=== PATIENT | female | born 1955 | race Caucasian/White ===

== ENCOUNTER 2017-05-21 09:35 | Observation (INO) ==
--- NOTE | 2017-05-21 10:18 | XRay Report ---
HISTORY: Reason for Exam:Cough/weakness FINDINGS: The lungs are hyperinflated. There is an ill-defined opacity located laterally in the right upper lobe. It measures approximately 3 x 4.1 cm. This has not changed since 01/07/17 at [facility]. No new mass or infiltrate have developed. There is no congestive heart failure or pleural effusion. The heart size is normal. IMPRESSION: COPD Stable vague masslike infiltrate in the right upper lobe Interpreted and Authenticated by: Henri Muñiz 05/21/17
[2017-05-21 10:57] LABS: Basophils # (Auto) 0 K/mcL (0.0-0.3); Basophils % (Auto) 0.3 % (0.0-2.0); Eosinophils # (Auto) 0.4 K/mcL (0.0-0.7); Eosinophils % (Auto) 3.6 % (0.0-7.0); Granulocytes % (Auto) 77.5 % (38.0-78.0); Lymphocytes # (Auto) 1.3 K/mcL (1.5-4.8); Lymphocytes % (Auto) 12.4 % (15.5-49.0); Mean Corpuscular HGB Conc 32.6 g/dL (31.0-36.0); Monocytes # (Auto) 0.7 K/mcL (0.1-0.9); Monocytes % (Auto) 6.2 % (1.0-12.0); Platelet Count 378 K/mcL (140-440); Red Cell Distribution Width 13.6 % (11.5-14.5)
[2017-05-21 11:21] LABS: ALT/SGPT 7 U/l (0-40); Albumin 3.2 gm/dL (3.2-5.2); Albumin/Globulin Ratio 1.1 (1.0-2.3); Alkaline Phosphatase 75 U/L (39-117); Blood Urea Nitrogen 9 mg/dl (8-23)
[2017-05-21 11:22] LABS: Appearance,Urine HAZY; Bilirubin,Urine NEG (NEG); Color,Urine YELLOW; Glucose,Urine (UA) NEGATIVE (NEG); Leukocyte Esterase,Urine NEG /uL (NEG); Protein,Urine NEG (NEG); Specific Gravity,Urine 1.017 (1.000-1.035); Urine Blood NEG mg/dL (<0.03)
--- NOTE | 2017-05-21 12:16 | Emergency Department Note ---
Weakness HPI - General Chief complaint: Weakness Stated complaint: SOB/weakness Time Seen by Provider: 05/21/17 10:22 Source: EMS Mode of arrival: EMS Limitations: no limitations - History of Present Illness HPI Narrative: This 62-year-old homebound patient is brought in by EMS after called because of her struggling to breathe and coughing which occurred while she was at the table today but not related to any swallowing of food. She has been coughing some for a couple of weeks and low-grade for about a year. Today she could not even talk and was nearly passing out she was laboring so hard. Yesterday she had some difficulty swallowing when she seemed to get too much of some chopped bananas in her mouth and he thinks it was mainly because of the volume. She ate well for supper. 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 She has gradually become weaker and lost weight with believing that she has lost approximately 25 pounds since February 15 when she was 89. She mostly eats well but sometimes finds it hard to bite down with her dentures. REVIEW OF SYSTEMS: General: No fevers or chills. She has had some sweats at night in the past 5 days. 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 ENT: She has been digging at her left ear and it is caused a dugout scab area which has been has tried to cover with a Band-Aid. CV: No chest pain. Pulmonary: No shortness of breath or wheezing. GI: She has complained of some lower abdominal discomforts and pain. No nausea or vomiting. No diarrhea. She has had lots of constipation. It is not been associated with hematochezia. Neuro: Has describes some new headaches in the past 3 weeks that are on the left side of her head from the ear backwards. - Related Data Allergies Allergy/AdvReac Type Severity Reaction Status Date / Time meperidine [From Demerol] Allergy Unknown Unknown Verified 05/21/17 10:00 Past Medical History - Past Medical History Medical history: Reports: CVA (Reportedly 5 in the last 1 year.), hypertension ( In the past.), other (Right lung mass, electively choosing not to do anything about it.). Denies: myocardial infarction - Social History smoking status: Current every day smoker Alcohol use: Reports: None Physical Exam Limitations: no limitations General appearance: cachectic, in no apparent distress, lethargic, other (Very soft quiet voice with few words making it hard to get much history from her although she seems to be able to understand most questions and respond.) Head: atraumatic, normocephalic Eye: Present: EOMI ENT: mucous membranes dry Neck: Present: trachea midline. Absent: lymphadenopathy, thyromegaly Respiratory: Present: normal lung sounds bilaterally, other (Occasional phlegmy cough.). Absent: respiratory distress, wheezes, stridor, accessory muscle use, prolonged expiratory phase Cardiovascular: Present: regular rate, normal rhythm. Absent: systolic murmur, diastolic murmur Abdominal: Present: soft. Absent: distention, tenderness, guarding, rebound, rigidity, organomegaly, mass Extremities: Absent: pedal edema, pretibial edema Neurological: Present: alert (But intermittently sleeping.), other (Left arm posed in a flexed and hand flexed position across her arm without movement or control. Left leg without movement or control.) Psychiatric: Present: flat affect Skin: Present: warm, dry Course Course Narrative: Labs and chest x-ray ordered. Oxygens occasionally going to the 83-85% range. Chest x-ray confirms the mass. Labs fairly unremarkable. Case discussed with Dr. Ding. Will obtain a medical social worker consultation regarding this patient circumstance, need for future skilled care because of and ability to continue to care for her, consideration for hospice, enrollment in Medicare, etc. 3:00 PM Labs fairly unremarkable. Chest x-ray demonstrates the persistence of the mass. She has witnessed episodes of hypoxia going down under 90% even with supplemental oxygen in 2-4 L. At times was short of breath. Patient may have some underlying cardiovascular or pulmonary versus central nervous system effect on her respiratory drive. It is unknown if she has metastatic disease from the probable cancer in her lungs. She will be admitted to observation for consideration of future placement and maximizing her treatment. I spoke with hospitalist, Dr Korey Ding, who kindly accepted taking over care. Vital Signs Temperature 97.8 F 05/21/17 09:36 Pulse Rate 84 05/21/17 09:36 Respiratory Rate 16 05/21/17 09:36 Blood Pressure 133/56 02/02/18 09:36 Pulse Oximetry (%) 100 05/21/17 09:36 Temperature 97.8 F 05/21/17 09:36 Pulse Rate 94 H 05/21/17 14:06 Respiratory Rate 20 05/21/17 13:46 Blood Pressure 117/58 05/21/17 14:01 Pulse Oximetry (%) 93 05/21/17 14:06 Weakness - Lab Data Result diagrams: 05/21/17 10:01 05/21/17 10:01 Lab Results 05/21/17 05/21/17 05/21/17 Range/Units 10:01 10:01 10:50 WBC 10.6 (4.5-11.0) K/mcL RBC 4.70 (4.00-5.20) M/mcL Hgb 14.1 (12.0-15.0) g/dL Hct 43.3 (36.0-48.0) % MCV 92.0 (80.0-100.0) fL MCH 30.0 (26.0-34.0) pg MCHC 32.6 (31.0-36.0) g/dL RDW 13.6 (11.5-14.5) % Plt Count 378 (140-440) K/mcL MPV 9.0 (7.4-10.4) fL Gran % 77.5 (38.0-78.0) % Lymph % (Auto) 12.4 L (15.5-49.0) % [place] % (Auto) 6.2 (1.0-12.0) % Eos % (Auto) 3.6 (0.0-7.0) % Baso % (Auto) 0.3 (0.0-2.0) % Gran # 8.3 H (1.8-8.0) K/mcL Lymph # (Auto) 1.3 L (1.5-4.8) K/mcL [place] # (Auto) 0.7 (0.1-0.9) K/mcL Eos # (Auto) 0.4 (0.0-0.7) K/mcL Baso # (Auto) 0 (0.0-0.3) K/mcL Sodium 146 H (133-145) mmol/L Potassium 3.6 (3.3-5.1) mmol/L Chloride 108 (96-108) mmol/L Carbon Dioxide 29 (22-30) mmol/L Anion Gap 9.0 (8-16) BUN 9 (8-23) mg/dl Creatinine 0.4 L (0.6-1.1) mg/dl GFR Calculation 110 Glucose 94 (70-105) mg/dL Calcium 9.2 (8.6-10.4) mg/dl Total Bilirubin 0.3 (0.0-1.0) mg/dL AST 9 (0-37) U/l ALT 7 (0-40) U/l Alkaline Phosphatase 75 (39-117) U/L Total Protein 6.0 (5.9-8.4) gm/dL Albumin 3.2 (3.2-5.2) gm/dL Globulin 2.8 (2.2-3.7) gm/dL Albumin/Globulin Ratio 1.1 (1.0-2.3) Urine Color Yellow Urine Appearance Hazy Urine pH 7.0 (5.0-9.0) Ur Specific [place] 1.017 (1.000-1.035) Urine Protein Neg (NEG) mg/dL Urine Glucose (UA) Negative (NEG) mg/dL Urine Ketones Neg (NEG) mg/dL Urine Occult Blood Neg (<0.03) mg/dL Urine Nitrate Neg (NEG) Urine Bilirubin Neg (NEG) mg/dL Urine Urobilinogen 2.0 A (NEG) mg/dL Ur Leukocyte Esterase Neg (NEG) /uL Ur Culture Indicated? No Disposition Pt seen by PROVIDER RELATIONS CONSULTANT/PA only: No Clinical Impression: Respiratory distress, Hypoxia, Mass of right lung, Status post CVA, DNR no code (do not resuscitate), Pelvic pain in female, Weight loss, Cachexia Headache Qualifiers: Headache type: unspecified Headache chronicity pattern: acute headache Intractability: intractable Qualified Code(s): R51 - Headache Disposition: Xfer As Outpt/Obs ([facility])
--- NOTE | 2017-05-21 17:40 | Internal Med History&Physical ---
Medical - H&P: HPI Patient information: Note initiated : 05/21/17 at 5:28 pm Service Date, if different from initiated Date: [] Patient: Rylan Gordillo 62 y/o F admitted on for SOB/Weakness. Chief Complaint: weakness, dyspnea History of present illness: Patient is a 62-year-old female with minimal known past medical history who presents with her in the advanced stages of declining status. Apparently somewhere in late November patient started becoming weak. She fell face down outside of an establishment hitting the sidewalk. Her states by , she is having difficulty getting around. He thought that she may be having strokes. She did not want to seek medical attention, they never did seek attention. Eventually due to progressive decline in functional status, decreased appetite, increasing weakness, increasing difficulty ambulating, they presented to [place] [facility]. This sounds like he was in the mid fall. At that point she was ambulating with a front wheel walker, however rapidly had decline in function went to a 4 wheeled walker and to the point of being able being to ambulate. When she was seen for a one-time visit in the clinic, radiograph was obtained which showed a right upper lobe mass. She made a conscious decision not to pursue any further diagnosis or treatment of this. They wanted the patient to be transferred to the hospital for hospitalization for further evaluation, however the patient did not want medical intervention. Apparently since that time she's continued to decline. Her voice is becoming weak, his speech is garbled and her has difficulty understanding her. He states she's had several more "strokes", though medical attention is not been seen. She does clearly have a left facial droop, and has become weak and paralyzed on the left side. She's developing contracture of the left leg, it's flexed at the knee most of the time. She has been having spasms and pains in her leg, he massages her legs help relieve that. She is not eating much, has to take very small bites, it can take up to an hour for him to feed her. There appears to be some neglect, she is unaware of food which presented or of drinking straws, but when she is able to start drinking or eating, she is able to carry on. She has had significant weight loss probably 25 pounds (baseline weight only 125 pounds). He describes times when she is unresponsive to him, seems to drift in and out of engagement with the environment. He has been providing full care to her. They presented to the ED today, because the patient started to take a few sips of her coffee, felt she was starting to strangle was getting short of breath and became afraid. After long discussion with the , at times verified with the patient, she really wants no active treatments other than to be comfortable. The reason he came to the hospital was that she became uncomfortable with the feeling of dyspnea. In the emergency department, she was found to be hypoxic at times at rest, at other times having normoxia on room air. Oxygen was added, which seemed to make her more comfortable. She's been hospitalized in observation status to evaluate for needs for comfort and services available. Symptom location: Systemic. Severity: Severe. Duration: 5-6 months. Associated symptoms: Dysphagia, weakness, weight loss, failure to thrive. ROS unobtainable: due to mental status Medical - H&P: PMH Medical history: Right upper lobe mass identified last fall Apparent cerebrovascular accident History of fractures Surgical history: None Pertinent family history: Unknown family history of neoplasia or other illnesses Social history: The patient lives with her , he is retired tier lift truck operator. 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 Does not currently drink alcohol, apparently does smoke cigarettes at times with assistance. Medical - H&P: Meds Home Medications Medication Instructions Recorded Confirmed Type Aspirin 325 mg PO PRN PRN 05/21/17 05/21/17 History Allergies Allergy/AdvReac Type Severity Reaction Status Date / Time meperidine [From Demerol] Allergy Unknown Unknown Verified 05/21/17 10:00 Medical - H&P: Exam - Constitutional Vitals: Temp Pulse Resp BP Pulse Ox 98.1 F 109 H 24 H 143/70 93 05/21/17 16:21 05/21/17 16:21 05/21/17 16:21 05/21/17 16:21 05/21/17 16:21 Exam: General: Very cachectic, ill-appearing woman, with contractures, laying on her left side ED gurney HEENT: Temporal wasting. She'll left facial droop. Pupils 2 mm and reactive bilaterally. Oropharynx with very dry mucous membranes, no plaquing or other lip or gum lesions, no exudate Neck: Supple, no thyromegaly Chest: Few scattered rhonchi, otherwise clear, respirations are unlabored Cardiovascular: Regular rate and rhythm. Carotid pulses are 2+ bilaterally. No bruits are appreciated. No edema. Abdomen: Scaphoid, soft, nontender, no organomegaly appreciated Lymphatic: No cervical or supraclavicular lymphadenopathy noted. Musculoskeletal: Muscular atrophy throughout. Left lower extremity is flexed at the knee fully, tone is increased, cannot extend the left knee. Increased tone on the left side. Extremities are cool, no cyanosis or clubbing. Neuro: Patient is awake, she has a cold T speaking, is unintelligible, and attention to the conversation appears to wax and wane. As a facial droop, otherwise pupils are equal, but the remainder of an exam cannot be performed due to inability to cooperate. Motor cannot be tested, though she does not move the left upper extremity spontaneously. There is some spontaneous movement of the right upper and lower extremity. Medical - H&P: Reslt - Labs CBC & Chem 7: 05/21/17 10:01 05/21/17 10:01 Labs: Short CBC 05/21/17 Range/Units 10:01 WBC 10.6 (4.5-11.0) K/mcL Hgb 14.1 (12.0-15.0) g/dL Hct 43.3 (36.0-48.0) % Plt Count 378 (140-440) K/mcL BMP 05/21/17 10:01 Sodium 146 H Potassium 3.6 Chloride 108 Carbon Dioxide 29 BUN 9 Creatinine 0.4 L Glucose 94 Calcium 9.2 Liver Function 05/21/17 Range/Units 10:01 Total Bilirubin 0.3 (0.0-1.0) mg/dL AST 9 (0-37) U/l ALT 7 (0-40) U/l Alkaline Phosphatase 75 (39-117) U/L Albumin 3.2 (3.2-5.2) gm/dL Urine 05/21/17 Range/Units 10:50 Urine Color Yellow Urine Appearance Hazy Urine pH 7.0 (5.0-9.0) Ur Specific [place] 1.017 (1.000-1.035) Urine Protein Neg (NEG) mg/dL Urine Glucose (UA) Negative (NEG) mg/dL - Imaging and Cardiology Chest x-ray Status: image reviewed by me Additional comments: FINDINGS: The lungs are hyperinflated. There is an ill-defined opacity located laterally in the right upper lobe. It measures approximately 3 x 4.1 cm. This has not changed since 01/07/17 at [facility]. No new mass or infiltrate have developed. There is no congestive heart failure or pleural effusion. The heart size is normal. Medical - H&P: A/P - Narrative A/P Narrative: 62-year-old female presents with some dyspnea associated with attempting to drink coffee through a straw. This setting of progressive functional decline, body wasting and failure to thrive. She presents an advanced state of illness. A long discussion with the patient's as well as some intermittent confirmation from the patient. Her main goal is bent to avoid medical care, she 's make conscious decisions not to pursue further workup or seek care. They only seek care now because of discomfort. Her main goal is to be comfortable. Her hand her realize she is dying of an as yet undiagnosed process, whether that is lung cancer (which seems likely given the right upper lobe mass and smoking history) or from cerebrovascular disease (she does have evidence of left sided stroke findings). As it's becoming difficult for the to make his comfortable at home, she is being hospitalized to evaluate for comfort needs. I discussed the use of comfort medications including morphine, lorazepam and oxygen to . He again reiterated the main goal is to provide comfort. We did discuss the use of IV hydration, and noted this would likely prolong life. If her goal was to simply focus on comfort that may not provide a meaningful benefit to her. At this point we have chosen not to pursue hydration. Plan: Observation hospitalization volunteer services specialist consultation to assist with any community resources available Morphine and lorazepam for comfort, to treat dyspnea, to air hunger, agitation Oxygen for air hunger/dyspnea Diet as tolerated, she is an aspiration risk Will not use hydration at this time Prognosis is guarded, hospice would be appropriate if that can be arranged. CODE STATUS is discussed with the patient and her . CODE STATUS is DO NOT RESUSCITATE. Medical - H&P: Qual - Stroke Symptom Onset Unknown: No - VTE Deep Vein Thrombosis/Pulmonary Embolism Present on Admission: No
[2017-05-21] MEDS ORDERED: ALBUTEROL SULFATE 2.5 MG/3 ML NEBULIZER NEB PRN (18:38)
[2017-05-21] MEDS ORDERED: ONDANSETRON 4 MG/2 ML VIAL IV PRN (18:38)
[2017-05-21] MEDS ORDERED: BACLOFEN 10 MG TABLET PO PRN (18:38)
[2017-05-21] MEDS ORDERED: ACETAMINOPHEN 325 MG TABLET PO PRN (18:38)
[2017-05-21] MEDS: 0.9 % SODIUM CHLORIDE 10 ML SYRINGE IV SCH (21:40)
[2017-05-21] MEDS: SENNOSIDES 1 TABLET PO SCH (21:41)
[2017-05-22] MEDS: 0.9 % SODIUM CHLORIDE 10 ML SYRINGE IV SCH ×3 (08:16→20:51)
[2017-05-22] MEDS: LORazepam 1 MG TABLET SL PRN (08:16)
[2017-05-22] MEDS: morphine 20 MG/ML ORAL.CONC SL PRN ×2 (11:14→20:23)
--- NOTE | 2017-05-22 17:24 | Internal Med Progress Note ---
Medical - PN: Subj Patient information: Note initiated : 05/22/17 at 5:21 pm Service Date, if different from initiated Date: [] Patient: Rylan Gordillo 62 y/o F admitted on 05/21/17 for SOB/Weakness. Chief Complaint: follow-up failure to thrive, dyspnea Interval history: 2/2 Patient hospitalized in observation after presenting to the ED with dyspnea, and the setting of progressive failure to thrive and deterioration, thought secondary to cerebrovascular accidents and right upper lobe mass. Goal was to assess needs for comfort, assist with resources for end-of-life care. 2/3 Has received lorazepam as well as morphine elixir for discomfort. Sleeping and does not arouse when I see her today. - Constitutional Vitals: Vital Signs Temp Pulse Resp BP Pulse Ox 97.9 F 84 16 111/72 93 05/22/17 15:18 05/21/17 23:55 05/22/17 15:18 05/22/17 15:18 05/22/17 15:18 Period Temp Pulse Resp BP Sys/Gao Pulse Ox Last 24 Hr 97.6 F-98.6 F 84-105 16-20 111-139/58-72 93-96 Intake and Output 05/22/17 05/22/17 05/22/17 05:59 13:59 21:59 Intake Total 50 / 50 Output Total Balance - - 49 / 49 Intake & Output: Intake & Output 05/22/17 05/22/17 05/22/17 05:59 13:59 21:59 Intake Total 50 / 50 Output Total Balance - - 49 / 49 Intake: Oral 50 / 50 Output: Void Amount 0 / 0 # of times incontinent of urine Other: Meal Jello Nourishment/Supplement Percent of Meal Consumed 25% 2 drinks Feeding Ability Needs Supervision Exam: General: Cachectic, ill-appearing Chest: Unlabored respirations Cardiovascular: Regular Abdomen: Soft Musculoskeletal: Left lower extremity flexed at the knee, increased muscle tone/ contracture Neuro: Asleep, spontaneously moves arms, does not arouse to light touch. Medical - PN: Obj Da - Labs CBC & Chem 7: 05/21/17 10:01 05/21/17 10:01 Labs: Abnormal Lab Results 05/21/17 05/21/17 05/21/17 10:50 10:01 10:01 Lymph % (Auto) 12.4 L Gran # 8.3 H Lymph # (Auto) 1.3 L Sodium 146 H Creatinine 0.4 L Urine Urobilinogen 2.0 A Meds: Medications Acetaminophen (Tylenol) 650 mg PO Q6HP PRN PRN Reason: PAIN/FEVER > 101 Albuterol Sulfate (Ventolin) 2.5 mg NEB Q2HP PRN PRN Reason: Shortness Of Breath Baclofen (Lioresal) 5 mg PO TIDP PRN PRN Reason: Spasms Lorazepam (Ativan) 1 mg SL Q4HP PRN PRN Reason: Anxiety Last Admin: 05/22/17 08:16 Dose: 1 mg Morphine Sulfate (Morphine) 10 mg SL Q2HP PRN PRN Reason: Pain Last Admin: 05/22/17 11:14 Dose: 10 mg Ondansetron HCl (Zofran) 4 mg IV Q6HP PRN PRN Reason: Nausea And Vomiting Senna (Senokot) 2 tab PO HS CYNTHIA Last Admin: 05/21/17 21:41 Dose: Not Given Sodium Chloride (Saline Flush) 10 ml IV Q8 CYNTHIA Last Admin: 05/22/17 14:30 Dose: 10 ml Medical - PN: A/P - Narrative A/P Narrative: 62-year-old female presents with some dyspnea associated with attempting to drink coffee through a straw. This setting of progressive functional decline, body wasting and failure to thrive. She presents an advanced state of illness. Physical decline presumptively secondary to CVA (no medical attention was sought during occurrences) and right upper lobe mass which she has chosen not to have it evaluated further. Plan: Continue feeding and lorazepam for comfort, treating dyspnea, air hunger, any anxiety or agitation. creative services director consultation to assist with any community resources available Oxygen for air hunger/dyspnea Diet as tolerated, she is an aspiration risk Prognosis remains guarded, hospice would be appropriate if that can be arranged. Medical - PN: Qual - Stroke Symptom Onset Unknown: No - VTE Deep Vein Thrombosis/Pulmonary Embolism Present on Admission: No
[2017-05-22] MEDS: ACETAMINOPHEN 650 MG/65 ML BOTTLE IV PRN (20:50)
[2017-05-22] MEDS: SENNOSIDES 1 TABLET PO SCH (22:08)
[2017-05-23] MEDS: 0.9 % SODIUM CHLORIDE 10 ML SYRINGE IV SCH ×2 (06:14→12:43)
[2017-05-23] MEDS: LORazepam 1 MG TABLET SL PRN (09:01)
[2017-05-23] MEDS: ACETAMINOPHEN 650 MG/65 ML BOTTLE IV PRN (12:39)
[2017-05-23] MEDS ORDERED: LORazepam 2 MG/ML VIAL IV PRN (12:56)
[2017-05-23] MEDS ORDERED: LACTOPEROXI/GLUC OXID/POT THIO 1 EACH GEL..EA. TOPICAL PRN (12:56)
[2017-05-23] MEDS ORDERED: morphine 20 MG/ML ORAL.CONC SL PRN (12:58)
[2017-05-23] MEDS ORDERED: ONDANSETRON 4 MG/2 ML VIAL IV PRN (12:58)
--- NOTE | 2017-05-23 13:01 | Internal Med Progress Note ---
Medical - PN: Subj Patient information: Note initiated : 05/23/17 at 12:59 pm Service Date, if different from initiated Date: [] Patient: Rylan Gordillo 62 y/o F admitted on 05/21/17 for SOB/Weakness. Chief Complaint: follow-up end-of-life care Interval history: 2 Patient hospitalized in observation after presenting to the ED with dyspnea, and the setting of progressive failure to thrive and deterioration, thought secondary to cerebrovascular accidents and right upper lobe mass. Goal was to assess needs for comfort, assist with resources for end-of-life care. 2/3 Has received lorazepam as well as morphine elixir for discomfort. Sleeping and does not arouse when I see her today. 2/4 Developed fever last night, received IV acetaminophen. Unresponsive this morning. Profound oxygen requirements at this time. Discussed with the patient 's on the phone again. We'll move to formal comfort care, appears eminent, likely within 48 hours. - Constitutional Vitals: Vital Signs Temp Pulse Resp BP Pulse Ox 99 F 108 H 30 H 104/63 94 05/23/17 12:27 05/23/17 06:32 05/23/17 12:27 05/23/17 12:27 05/23/17 12:27 Period Temp Pulse Resp BP Sys/Gao Pulse Ox Last 24 Hr 97.9 F-100.1 F 108-127 16-32 89-111/48-72 80-95 Intake and Output 05/22/17 05/23/17 05/23/17 21:59 05:59 13:59 Intake Total 50 / 50 65 / 65 Output Total 0 / 0 Balance 49 / 49 65 / 65 Weight 83 lb Intake & Output: Intake & Output 05/22/17 05/23/17 05/23/17 21:59 05:59 13:59 Intake Total 50 / 50 65 / 65 Output Total 0 / 0 Balance 49 / 49 65 / 65 Weight 83 lb Intake: IV 65 / 65 Oral 50 / 50 Output: Void Amount 0 / 0 # of times incontinent of urine Exam: General: Unresponsive Chest: Respirations mildly labored, scattered rhonchi Cardiovascular: Regular Abdomen: Soft, no apparent tenderness Musculoskeletal: Left leg contracture persists. Neuro: Obtunded Medical - PN: Obj Da - Labs CBC & Chem 7: 05/21/17 10:01 05/21/17 10:01 Labs: Abnormal Lab Results 05/21/17 05/21/17 05/21/17 10:50 10:01 10:01 Lymph % (Auto) 12.4 L Gran # 8.3 H Lymph # (Auto) 1.3 L Sodium 146 H Creatinine 0.4 L Urine Urobilinogen 2.0 A Meds: Medications Albuterol Sulfate (Ventolin) 2.5 mg NEB Q2HP PRN PRN Reason: Shortness Of Breath Acetaminophen (Ofirmev) 650 mg in 65 mls @ 130 mls/hr IV Q6HP PRN PRN Reason: PAIN/FEVER > 101 Last Admin: 05/23/17 12:39 Dose: 130 mls/hr Lorazepam (Ativan) 1 mg SL Q4HP PRN PRN Reason: Anxiety Last Admin: 05/23/17 09:01 Dose: 1 mg Senna (Senokot) 2 tab PO HS CYNTHIA Last Admin: 05/22/17 22:08 Dose: Not Given Sodium Chloride (Saline Flush) 10 ml IV Q8 CYNTHIA Last Admin: 05/23/17 12:43 Dose: 10 ml Medical - PN: A/P - Time Spent With Patient Total time spent is greater than 50% in coordination of care (as documented) at patient's floor/unit and/or counseling patient: Greater than 35 minutes - Narrative A/P Narrative: 62-year-old female presents with some dyspnea associated with attempting to drink coffee through a straw. This setting of progressive functional decline, body wasting and failure to thrive. She presents an advanced state of illness. Physical decline presumptively secondary to CVA (no medical attention was sought during occurrences) and right upper lobe mass which she has chosen not to have it evaluated further. She has had progressive decline, now in coma. appears eminent in likely the next 48 hours. Plan: Comfort measures order set Continue morphine and lorazepam for comfort, treating dyspnea, air hunger, any anxiety or agitation. Discontinue supplemental oxygen, use morphine for dyspnea or air hunger. cargo and ramp services manager consultation Prognosis remains guarded, hospice would be appropriate if that can be arranged. Medical - PN: Qual - Stroke Symptom Onset Unknown: No - VTE Deep Vein Thrombosis/Pulmonary Embolism Present on Admission: No
[2017-05-23] MEDS ORDERED: 0.9 % SODIUM CHLORIDE 10 ML SYRINGE IV SCH (14:00)
--- NOTE | 2017-05-23 16:24 | Death Note ---
Discharge Sum: Prov - Provider Patient information: Note initiated : 05/23/17 at 4:21 pm Service Date, if different from initiated Date: [] Patient: Rylan Gordillo 62 y/o F admitted on 05/21/17 for SOB/Weakness. Primary care physician: None Admitting clinician: Angeles Parra Consults: 05/21/17 11:57 Consult to Physician [CONS] Stat Comment: Consulting Provider: Angeles Parra Reason For Exam: Physician to Consult Pronouncing clinician: Angeles Parra Discharge Sum: Diag - PCOD Cause of : Failure to thrive Discharge Sum: Summary - Date and Time Date of admission: 05/21/17 16:21 Date of : 05/23/17 Time of : 16:00 - Summary Details: 05/21 Patient hospitalized after presenting to the ED with dyspnea, and the setting of progressive failure to thrive and deterioration, thought secondary to cerebrovascular accidents and right upper lobe mass. Goal was to assess needs for comfort, assist with resources for end-of-life care. Patient had made an informed decision last fall not to pursue any further workup or evaluation of her right upper lobe mass. She had chosen not to pursue any hospitalization or physician evaluation for presumptive stroke symptoms occurred over the last 6 months. Her goal was comfort. This was confirmed with her . 2/3 Has received lorazepam as well as morphine elixir for discomfort. Sleeping and does not arouse when I see her today. 2/4 Developed fever last night, received IV acetaminophen. Unresponsive this morning. Profound oxygen requirements at this time. Discussed with the patient 's on the phone again. We'll move to formal comfort care, appears eminent, likely within 48 hours. 05/23/17 at 16:00, patient : Failure to thrive secondary to dysphagia secondary to CVA. Wasting effects of right upper lobe mass contributing. - Additional Data Confirmation of as documented by pronouncing clinician: no pulse, no respirations, no heart sounds, pupils fixed and dilated Family: at bedside Attending/PCP notified?: No (No PCP) Attending physician: Angeles Parra Was code activated?: No Autopsy requested?: No money examiner notified?: No Organ bank notified?: Yes Advance directives?: No Hospice patient?: No
== END 2017-05-23 17:56 | disposition expired ==
LOC: ED 09:35 → MEDSUR 09:35
PROVIDERS: ADMIT Internal Medicine; ATTEND Internal Medicine